=== PATIENT | female | born 1950 | race African-American/Black ===

== ENCOUNTER 2024-02-10 18:19 | Emergency (ER) | payer OTHER ==
[2024-02-10 18:34] VITALS: RESP 18; TEMP 98.6; BMI 24.9
[2024-02-10 19:40] VITALS: BP 151/81; PULSE 87
[2024-02-10] MEDS ORDERED: DEXAMETHASONE 4 MG TABLET (FP) ONE ×2 (20:03→20:04)
[2024-02-10] MEDS ORDERED: ACETAMINOPHEN 500 MG TABLET (FP) ONE (20:06)
[2024-02-10] MEDS: DEXAMETHASONE 4 MG TABLET (FP) PO ONE (20:17)
[2024-02-10] MEDS: ACETAMINOPHEN 500 MG TABLET (FP) PO ONE (20:17)
== END 2024-02-11 00:08 | disposition home or self-care (01) ==
LOC: JER 18:19
DX: J02.9 Acute pharyngitis, unspecified (principal); M54.2 Cervicalgia; Z20.822 Contact with and (suspected) exposure to COVID-19
CPT/HCPCS: 0241U-QW; 87651; 99284-25